=== PATIENT | male | born 1970 | race Caucasian/White ===

== ENCOUNTER 2022-01-27 08:42 | Emergency (ER) | payer MEDICAID, OTHER ==
[2022-01-27] MEDS ORDERED: Cephalexin 500 MG Cap PO ONE (11:43)
== END 2022-01-27 12:30 | disposition home or self-care (01) ==
LOC: JD.ED 08:42
DX: S62.632A Displaced fracture of distal phalanx of right middle finger, initial encounter for closed fracture (principal); Z86.16 Personal history of COVID-19; W23.1XXA Caught, crushed, jammed, or pinched between stationary objects, initial encounter
CPT/HCPCS: 11740; 73140; 99283; A9270